=== PATIENT | male | born 1945 | race Caucasian/White ===

== ENCOUNTER 2017-11-24 14:00 | Emergency (ER) | payer MEDICARE, BC ==
[2017-11-24 14:23] VITALS: BP 147/77
[2017-11-24] MEDS ORDERED: Sodium Chloride 0.9% 10 ML Syringe FLUSH PRN (14:39)
--- NOTE | 2017-11-24 15:39 | EDM.PDOC ---
ED HPI GENERAL MEDICAL PROBLEM - General Chief Complaint: Cardiovascular Problem Stated Complaint: HEART FLUTTERING Time Seen by Provider: 11/24/17 14:22 Source of Information: Reports: Patient History Limitations: Reports: No Limitations - History of Present Illness INITIAL COMMENTS - FREE TEXT/NARRATIVE: The patient presents with fluttering in his chest. This has been going on for about a year and a half but over the past few days it has gotten worse. He had about 30 episodes the other day while he was out scouting for deer. He has no chest pain, shortness of breath, abdominal pain, nausea and vomiting. He has no history of heart problems. He has no history of thyroid problems. The episodes do not last that long. Onset: Gradual Duration: Week(s): Severity: Moderate Improves with: Reports: None Worsens with: Reports: None Associated Symptoms: Reports: No Other Symptoms - Related Data Allergies Allergy/AdvReac Type Severity Reaction Status Date / Time ciclesonide Allergy Other Verified 10/08/17 09:30 cromolyn Allergy Other Verified 10/08/17 09:30 fluticasone Allergy Rash Verified 10/08/17 09:32 triamcinolone Allergy Rash Verified 10/08/17 09:34 levofloxacin AdvReac Other Verified 10/08/17 09:33 Home Meds: Home Meds Budesonide/Formoterol [Symbicort 160-4.5 MCG] 2 puff INH DAILY PRN 03/29/14 [ History] Tamsulosin [Flomax] 1 tab PO DAILY 03/29/14 [History] Finasteride 5 mg PO DAILY 05/08/15 [History] Simvastatin 1 tab PO BEDTIME 05/08/15 [History] Past Medical History HEENT History: Reports: Allergic Rhinitis, Sinusitis Respiratory History: Reports: COPD Gastrointestinal History: Reports: GERD, Helicobacter Pylori Other Gastrointestinal History: epigastric pain, rectal bleeding Genitourinary History: Reports: Prostate Disorder Musculoskeletal History: Reports: Neck Pain, Chronic, Osteoarthritis Other Psychiatric History: ETOH abuse Other Dermatologic History: lipoma - Past Surgical History HEENT Surgical History: Reports: Cataract Surgery, Naso-Sinus Surgery Social & Family History - Tobacco Use Smoking Status *Q: Former Smoker Used Tobacco, but Quit: Yes Month/Year Tobacco Last Used: 25 - Caffeine Use Caffeine Use: Reports: Coffee, Soda - Recreational Drug Use Recreational Drug Use: No ED ROS GENERAL - Review of Systems Review Of Systems: See Below Constitutional: Reports: No Symptoms HEENT: Reports: No Symptoms Respiratory: Reports: No Symptoms Cardiovascular: Reports: Palpitations (Fluttering) Endocrine: Reports: No Symptoms GI/Abdominal: Reports: No Symptoms : Reports: No Symptoms ED EXAM, GENERAL - Physical Exam Exam: See Below Exam Limited By: No Limitations General Appearance: Alert, No Apparent Distress Ears: Normal External Exam Nose: Normal Inspection Head: Atraumatic, Normocephalic Neck: Normal Inspection Respiratory/Chest: No Respiratory Distress, Lungs Clear, Normal Breath Sounds Cardiovascular: Regular Rate, Rhythm, No Edema, No Murmur GI/Abdominal: Soft, Non-Tender, No Organomegaly, No Mass Back Exam: Normal Inspection Extremities: Normal Inspection EKG INTERPRETATION EKG Date: 11/24/17 Time: 15:55 Rhythm: Other (sinus bradycardia) Rate (Beats/Min): 51 [place]: Normal P-Wave: Present QRS: Normal ST-T: Normal QT: Normal Course - Vital Signs Last Recorded V/S: Last Vital Signs Temp 97.7 F 11/24/17 14:21 Pulse 53 L 11/24/17 14:21 Resp 20 11/24/17 14:21 BP 147/77 H 11/24/17 14:21 Pulse Ox 99 11/24/17 14:21 - Orders/Labs/Meds Orders: Active Orders 24 hr Category Date Time Status Cardiac Monitoring [RC] . DIRECTED Care 11/24/17 14:39 Active EKG Documentation Completion [RC] ASDIRECTED Care 11/24/17 15:49 Active Peripheral IV Care [RC] . DIRECTED Care 11/24/17 14:40 Active Sodium Chloride 0.9% [Saline Flush] Med 11/24/17 14:39 Active 10 ml FLUSH ASDIRECTED PRN Peripheral IV Insertion Adult [OM.PC] Stat Oth 11/24/17 14:39 Ordered EKG 12 Lead [EK] Stat Ther 11/24/17 15:49 Ordered Medication Orders Sodium Chloride (Saline Flush) 10 ml FLUSH ASDIRECTED PRN PRN Reason: Keep Vein Open Last Admin: 11/24/17 14:47 Dose: 10 ml Labs: Laboratory Tests 11/24/17 11/24/17 Range/Units 14:30 14:30 WBC 5.28 (4.23-9.07) K/mm3 RBC 4.19 L (4.63-6.08) M/mm3 Hgb 12.7 L (13.7-17.5) gm/L Hct 39.5 L (40.1-51.0) % MCV 94.3 H (79.0-92.2) fl MCH 30.3 (25.7-32.2) pg MCHC 32.2 (32.2-35.5) g/dl RDW Std Deviation 42.6 (35.1-43.9) fL Plt Count 211 (163-337) K/mm3 MPV 10.3 (9.4-12.3) fl Neut % (Auto) 57.9 (34.0-67.9) % Lymph % (Auto) 29.7 (21.8-53.1) % [place]kinson % (Auto) 9.7 (5.3-12.2) % Eos % (Auto) 1.9 (0.8-7.0) Baso % (Auto) 0.8 (0.1-1.2) % Neut # (Auto) 3.06 (1.78-5.38) K/mm3 Lymph # (Auto) 1.57 (1.32-3.57) K/mm3 Wilkinson # (Auto) 0.51 (0.30-0.82) K/mm3 Eos # (Auto) 0.10 (0.04-0.54) K/mm3 Baso # (Auto) 0.04 (0.01-0.08) K/mm3 Sodium 138 (136-145) mEq/L Potassium 4.5 (3.5-5.1) mEq/L Chloride 107 (98-107) mEq/L Carbon Dioxide 29 (21-32) mEq/L Anion Gap 6.5 (5-15) BUN 27 H (7-18) mg/dL Creatinine 1.3 (0.7-1.3) mg/dL Est Cr Clr Drug Dosing 52.25 mL/min Estimated GFR (MDRD) 54 (>60) mL/min BUN/Creatinine Ratio 20.8 H (14-18) Glucose 89 (83-115) mg/dL Calcium 9.6 (8.5-10.1) mg/dL Total Bilirubin 0.8 (0.2-1.0) mg/dL AST 19 (15-37) U/L ALT 19 (16-63) U/L Alkaline Phosphatase 71 (46-116) U/L Troponin I < 0.017 (0.00-0.056) ng/mL Total Protein 7.2 (6.4-8.2) g/dl Albumin 3.8 (3.4-5.0) g/dl Globulin 3.4 gm/dL Albumin/Globulin Ratio 1.1 (1-2) TSH 3rd Generation 1.509 (0.358-3.74) uIU/mL Meds: Medications Generic Name Dose Route Start Last Admin Trade Name Freq PRN Reason Stop Dose Admin Sodium Chloride 10 ml 11/24/17 14:39 11/24/17 14:47 Saline Flush FLUSH 10 ml ASDIRECTED PRN Administration Keep Vein Open - Re-Assessments/Exams Free Text/Narrative Re-Assessment/Exam: 11/24/17 15:50 I ordered an IV saline lock, EKG, and labs. His EKG shows a sinus bradycardia with no acute changes. His CBC and CMP look good. His troponin is negative. His TSH is normal. 11/24/17 16:02 He had no episodes since he has been here. I will put him on a 48 hour holter monitor. Departure - Departure Time of Disposition: 16:05 Disposition: Home, Self-Care 01 Condition: Good Clinical Impression: Palpitations Referrals: Lizz Lamar, FINANCIAL WRITER [Primary Care Provider] - 1 Week Forms: ED Department Discharge Additional Instructions: Drink plenty of water about 64 ounces per day. Try to avoid stimulants like caffeine and nicotine. Wear the holter monitor for 48 hours. Follow up with Lizz Lamar in 1 week. - My Orders Last 24 Hours: My Active Orders 11/24/17 14:39 Cardiac Monitoring [RC] . DIRECTED Sodium Chloride 0.9% [Saline Flush] 10 ml FLUSH ASDIRECTED PRN Peripheral IV Insertion Adult [OM.PC] Stat 11/24/17 14:40 Peripheral IV Care [RC] . DIRECTED 11/24/17 15:49 EKG Documentation Completion [RC] ASDIRECTED EKG 12 Lead [EK] Stat - Assessment/Plan Last 24 Hours: My Active Orders 11/24/17 14:39 Cardiac Monitoring [RC] . DIRECTED Sodium Chloride 0.9% [Saline Flush] 10 ml FLUSH ASDIRECTED PRN Peripheral IV Insertion Adult [OM.PC] Stat 11/24/17 14:40 Peripheral IV Care [RC] . DIRECTED 11/24/17 15:49 EKG Documentation Completion [RC] ASDIRECTED EKG 12 Lead [EK] Stat
== END 2017-11-24 16:46 | disposition home or self-care (01) ==
LOC: JD.ED 14:00
DX: R00.2 Palpitations (principal); Z87.891 Personal history of nicotine dependence; Z88.1 Allergy status to other antibiotic agents; Z88.8 Allergy status to other drugs, medicaments and biological substances
CPT/HCPCS: 36415; 80053; 84443; 84484; 85025; 93005; 93225; 93226; 99285; J7050; 93010; 99284-25

== ENCOUNTER 2020-11-09 18:49 | Emergency (ER) | payer MEDICARE, BC ==
--- NOTE | 2020-11-09 19:15 | EDM.PDOC ---
ED HPI GENERAL MEDICAL PROBLEM - General Chief Complaint: Neuro Symptoms/Deficits Stated Complaint: LT SIDE NUMBNESS/BLURRED VISION Time Seen by Provider: 11/09/20 19:08 Source of Information: Reports: Patient History Limitations: Reports: No Limitations - History of Present Illness INITIAL COMMENTS - FREE TEXT/NARRATIVE: A stroke alert was called for this patient. Mr. Marion is a very pleasant 75-year-old gentleman who now presents to the ED stating that he developed sudden-onset tingling/numbness to the left side of his face, neck, left upper extremity (a little), and left lower extremity (a lot) around 18:00 this evening, while riding his truck. The tingling/numbness sensation does not involve his trunk. No associated headache, chest pain or discomfort, palpitations, dyspnea, or nausea. No prior similar symptoms. The patient did not take any medications after the onset of his symptoms. Here in the ED, the patient's initial BP is found to be elevated at 161/67, otherwise, he is hemodynamically stable, afebrile, saturating 99% on room air. He appears to be comfortable, in no acute distress. Prior to this evening, the patient denies having a recent fever, chills, sore throat, ear pain, nasal or sinus congestion, cough, dyspnea, chest pain, palpitations, nausea, vomiting, constipation, diarrhea, abdominal pain, urinary symptoms, recent weight gain or weight loss, recent bloody bowel movements or black bowel movements, recent joint aches, headaches, or rashes. The patient's PCP is WILY Cordero. He has received 2 COVID vaccinations. - Related Data Allergies Allergy/AdvReac Type Severity Reaction Status Date / Time ciclesonide Allergy Severe Other Verified 11/09/20 19:06 cromolyn Allergy Severe Other Verified 11/09/20 19:06 fluticasone Allergy Severe Rash Verified 11/09/20 19:06 triamcinolone Allergy Severe Rash Verified 11/09/20 19:06 levofloxacin AdvReac Severe Other Verified 11/09/20 19:06 Home Meds: Home Meds Tamsulosin [Flomax] 1 tab PO DAILY 03/29/14 [History] Finasteride 5 mg PO DAILY 05/08/15 [History] lisinopriL [Lisinopril] 5 mg PO DAILY 11/09/20 [History] Past Medical History HEENT History: Reports: Allergic Rhinitis Cardiovascular History: Reports: Hypertension Gastrointestinal History: Reports: GERD (untreated) Genitourinary History: Reports: BPH Musculoskeletal History: Reports: Osteoarthritis - Past Surgical History HEENT Surgical History: Reports: Cataract Surgery (bilateral), Naso-Sinus Surgery Musculoskeletal Surgical History: Reports: Carpal Tunnel (left only), Other (See Below) (Left elbow tendon surgery. Right knee, open.) Social & Family History - Tobacco Use Tobacco Use Status *Q: Former Tobacco User Years of Tobacco use: 24 Packs/Tins Daily: 2 Month/Year Tobacco Last Used: Quit 1989 Tobacco Use Comment: Started smoking 1965 - Caffeine Use Caffeine Use: Reports: Coffee - Alcohol Use Alcohol Use History: No - Recreational Drug Use Recreational Drug Use: No - Living Situation & Occupation Living situation: Reports: , with Spouse, with Family ((blind) son, daughter, grandson) Occupation: Employed ([employer]) ED ROS GENERAL - Review of Systems Review Of Systems: Comprehensive ROS is negative, except as noted in HPI. ED EXAM, NEURO - Physical Exam Exam: See Below Exam Limited By: No Limitations General Appearance: Alert, WD/WN, No Apparent Distress Eye Exam: Bilateral Eye: EOMI, Normal Inspection (s/p cataract surgery) Ears: Normal External Exam, Hearing Grossly Normal Nose: Normal Inspection Throat/Mouth: Normal Inspection, Normal Lips, Normal Voice, No Airway Compromise Head Exam: Atraumatic, Normocephalic Neck: Normal Inspection, Full Range of Motion Respiratory/Chest: No Respiratory Distress, Lungs Clear, Normal Breath Sounds, No Accessory Muscle Use Cardiovascular: Normal Peripheral Pulses, Regular Rate, Rhythm, No Edema, No Gallop, No JVD, No Murmur, No Rub GI/Abdominal: Normal Bowel Sounds, Soft, Non-Tender, No Organomegaly, No Distention, No Abnormal Bruit, No Mass Neurological: Alert, Normal Dorsiflexion (bilateral), CN II-XII Intact, Normal Plantar Flexion (bilateral), Oriented x 3, Abnormal Sensation (Decreased sensation to the left corner of the mouth, otherwise, no decreased sensation to the face. Decreased sensation to the entirety of the left upper extremity and the entirety of the left lower extremity. No decreased sensation to the patient's trunk.) Back Exam: Normal Inspection, Full Range of Motion, NT Extremities: Normal Inspection, Normal Range of Motion, No Pedal Edema, Normal Capillary Refill Psychiatric: Normal Affect Skin Exam: Warm, Dry, Intact, Normal Color, No Rash #1 Interpretation EKG Date: 11/09/20 Time: 19:16 Rhythm: Other (Sinus bradycardia) Rate (Beats/Min): 55 [place]: Normal P-Wave: Present QRS: Normal ST-T: Normal QT: Normal Comparison: No Change (11/24/2017) Course - Vital Signs Last Recorded V/S: Last Vital Signs Temp 36.6 C 11/09/20 19:02 Pulse 55 L 11/09/20 22:02 Resp 16 11/09/20 22:02 BP 172/61 H 11/09/20 22:02 Pulse Ox 96 11/09/20 22:02 - Orders/Labs/Meds Orders: Active Orders 24 hr Category Date Time Status Ang Chest [CT] Stat Exams 11/09/20 21:26 Taken Labs: Laboratory Tests 11/09/20 11/09/20 11/09/20 Range/Units 19:05 19:09 19:09 WBC 4.57 (4.23-9.07) K/mm3 RBC 3.88 L (4.63-6.08) M/mm3 Hgb 12.1 L (13.7-17.5) gm/dl Hct 38.2 L (40.1-51.0) % MCV 98.5 H (79.0-92.2) fl MCH 31.2 (25.7-32.2) pg MCHC 31.7 L (32.2-35.5) g/dl RDW Std Deviation 46.6 H (35.1-43.9) fL Plt Count 205 (163-337) K/mm3 MPV 9.5 (9.4-12.3) fl Neutrophils % (Manual) 54 (40-60) % Band Neutrophils % 0 (0-10) % Lymphocytes % (Manual) 34 (20-40) % Atypical Lymphs % 0 % Monocytes % (Manual) 10 (2-10) % Eosinophils % (Manual) 2 (0.8-7.0) % Basophils % (Manual) 0 L (0.2-1.2) Platelet Estimate Adequate RBC Morph Comment Normal PT (9.7-12.0) SECONDS INR APTT (21.7-31.4) SECONDS D-Dimer, Quantitative (0.19-0.50) mg/L Sodium 141 (136-145) mEq/L Potassium 4.0 (3.5-5.1) mEq/L Chloride 108 H (98-107) mEq/L Carbon Dioxide 27 (21-32) mEq/L Anion Gap 10.0 (5-15) BUN 23 H (7-18) mg/dL Creatinine 1.1 (0.7-1.3) mg/dL Est Cr Clr Drug Dosing 58.99 mL/min Estimated GFR (MDRD) > 60 (>60) mL/min BUN/Creatinine Ratio 20.9 H (14-18) Glucose 125 H (70-99) mg/dL POC Glucose 117 H (70-99) mg/dL Calcium 9.1 (8.5-10.1) mg/dL Magnesium 1.9 (1.8-2.4) mg/dL Total Bilirubin 0.4 (0.2-1.0) mg/dL AST 18 (15-37) U/L ALT 25 (16-63) U/L Alkaline Phosphatase 48 (46-116) U/L Troponin I < 0.017 (0.00-0.056) ng/mL C-Reactive Protein <0.2 (<1.0) mg/dL Total Protein 6.8 (6.4-8.2) g/dl Albumin 3.7 (3.4-5.0) g/dl Globulin 3.1 gm/dL Albumin/Globulin Ratio 1.2 (1-2) SARS-CoV-2 RNA (JAZMYNE) (NEGATIVE) 11/09/20 11/09/20 Range/Units 19:09 19:15 WBC (4.23-9.07) K/mm3 RBC (4.63-6.08) M/mm3 Hgb (13.7-17.5) gm/dl Hct (40.1-51.0) % MCV (79.0-92.2) fl MCH (25.7-32.2) pg MCHC (32.2-35.5) g/dl RDW Std Deviation (35.1-43.9) fL Plt Count (163-337) K/mm3 MPV (9.4-12.3) fl Neutrophils % (Manual) (40-60) % Band Neutrophils % (0-10) % Lymphocytes % (Manual) (20-40) % Atypical Lymphs % % Monocytes % (Manual) (2-10) % Eosinophils % (Manual) (0.8-7.0) % Basophils % (Manual) (0.2-1.2) Platelet Estimate RBC Morph Comment PT 10.1 (9.7-12.0) SECONDS INR 0.94 APTT 21.7 (21.7-31.4) SECONDS D-Dimer, Quantitative 1.17 H (0.19-0.50) mg/L Sodium (136-145) mEq/L Potassium (3.5-5.1) mEq/L Chloride (98-107) mEq/L Carbon Dioxide (21-32) mEq/L Anion Gap (5-15) BUN (7-18) mg/dL Creatinine (0.7-1.3) mg/dL Est Cr Clr Drug Dosing mL/min Estimated GFR (MDRD) (>60) mL/min BUN/Creatinine Ratio (14-18) Glucose (70-99) mg/dL POC Glucose (70-99) mg/dL Calcium (8.5-10.1) mg/dL Magnesium (1.8-2.4) mg/dL Total Bilirubin (0.2-1.0) mg/dL AST (15-37) U/L ALT (16-63) U/L Alkaline Phosphatase (46-116) U/L Troponin I (0.00-0.056) ng/mL C-Reactive Protein (<1.0) mg/dL Total Protein (6.4-8.2) g/dl Albumin (3.4-5.0) g/dl Globulin gm/dL Albumin/Globulin Ratio (1-2) SARS-CoV-2 RNA (JAZMYNE) Negative (NEGATIVE) Meds: Medications Discontinued Medications Generic Name Dose Route Start Last Admin Trade Name Freq PRN Reason Stop Dose Admin Aspirin 324 mg 11/09/20 20:13 11/09/20 20:27 Aspirin 81 Mg Tab.Chew PO 11/09/20 20:14 Not Given ONETIME STA Sodium Chloride 1,000 mls @ 150 mls/hr 11/09/20 21:30 Normal Saline IV ASDIRECTED HUBERT Sodium Chloride 100 mls @ 60 mls/min 11/09/20 21:45 11/09/20 22:58 Normal Saline IV 60 mls/min ASDIRECTED HUBERT Administration Iopamidol 100 ml 11/09/20 21:31 11/09/20 22:58 Iopamidol 755 Mg/Ml 100 Ml Bottle IVPUSH 11/09/20 21:32 100 ml ONETIME ONE Administration Sodium Chloride 10 ml 11/09/20 21:31 11/09/20 22:58 Sodium Chloride 0.9% 10 Ml Sdv FLUSH 11/09/20 21:32 10 ml ONETIME ONE Administration - Re-Assessments/Exams Free Text/Narrative Re-Assessment/Exam: 11/09/20 19:12 On neurologic examination, the patient reports only a slight decreased sensation to the left corner of his mouth, otherwise, sensation to his face is equal bilaterally. He reports some decreased sensation to his entire upper extremity, and, especially, to his entire left lower extremity. I see no facial droop or facial weakness, and the patient's upper and lower extremity strength appears to be equal bilaterally, both proximally and distally. On visual field challenge, there are no visual field deficits. He is status-post cataract surgery in both eyes, therefore there was no pupillary response to light on either side. I have ordered a stat Accu-Chek and CT of the head without contrast. In addition, I have ordered several blood tests, a swab for the SARS-CoV-2 virus (in the event that the patient needs to be admitted or transferred), a portable chest x- ray, and an ECG. 11/09/20 19:54 Portable chest radiograph appears to be grossly normal. The cardiac silhouette is within normal limits. Aortosclerosis incidentally noted. No pulmonary vascular congestion. No pleural effusions seen on this AP view. No focal infiltrate. No pneumothorax. Formal read per the Radiologist pending. The patient's CBC is remarkable for an H/H slightly depressed at 12.1/38.2, with remainder of his CBC being unremarkable. His CMP is remarkable for a BUN slightly elevated at 23 with a Cr normal at 1.1, and mild hyperglycemia of 125, with remainder of his CMP being unremarkable. His magnesium level is within normal limits at 1.9. His CRP is undetectably low. His troponin is undetectably low. His D-dimer is elevated at 1.17. His coags are within normal limits. 11/09/20 19:59 CT of the head without contrast is read by Dr. Mcclain as: 1. Mild senescent changes as noted above. 2. No acute intracranial abnormality is seen. 3. If patient's symptoms warrant further evaluation, consider brain MRI. 11/09/20 20:11 I explained to the patient that I would like to discuss the case with a Neurologist. He prefers [facility]. CT and portable chest x-ray images pushed to [facility] at 19:56 (prior to receipt of CT report). Case discussed with Carloz at [facility] at 20:01. Case then discussed with Dr. Karoline Cates, Neurologist at [facility], at 20:06. He feels that the patient likely suffered a small vessel stroke. He recommended that we start the patient on a daily aspirin, either 81 mg or a full aspirin, and then have the patient follow-up in their Neurology clinic this coming Thursday. He does not feel the patient needs to be admitted. I have ordered 324 mg of aspirin. 11/09/20 20:49 Notified that the patient took 324 mg of aspirin prior to coming to the ED (he had told me that he did not take any medications). The patient's swab for the SARS-CoV-2 virus is negative. 11/09/20 21:25 Test results discussed with the patient. I explained that his elevated D-dimer means that it is possible that he has a pulmonary embolus, although it is an incidental finding, likely unrelated to his current symptoms. I offered to perform a CT angiogram to rule out a PE, and the patient would like to proceed with that. I have therefore ordered a CT angiogram of the chest to evaluate for PE, along with some IV fluid. 11/10/20 00:12 CT angiogram of the chest is read by vRleonard as: 1. No evidence of pulmonary embolism or aortic dissection. 2. 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 3. Moderate coronary artery calcification. 4. Bilateral bronchial wall thickening suggests bronchitis or bronchial edema. 5. Patchy mild bilateral perihilar and basilar alveolar densities probably related to hypoventilatory changes or bronchitis/bronchiolitis. No yumi consolidations. 6. Punctate bilateral renal stones, no gross hydronephrosis although the kidneys are incompletely visualized. Bilateral renal cysts. 11/10/20 00:29 Test results discussed with the patient. I will discharge him home with the recommendation that he take a baby aspirin once a day. He is to call Dr. Roslyn [facility] first thing Thursday morning to make an appointment to be seen the same day. He should return to the ED if any worsening symptoms. Departure - Departure Time of Disposition: 00:30 Disposition: Home, Self-Care 01 Condition: Good Clinical Impression: Stroke, Hemianesthesia - Discharge Information *PRESCRIPTION DRUG MONITORING PROGRAM REVIEWED*: Not Applicable *COPY OF PRESCRIPTION DRUG MONITORING REPORT IN PATIENT SIMON: Not Applicable Instructions: Rehabilitation After a Stroke, Adult Referrals: Marlene Stewart PA-C [Primary Care Provider] - Karoline Cates MD [Ordering Only Provider] - Forms: ED Department Discharge Additional Instructions: You were seen in the emergency room after developing sudden-onset tingling/numbness to the left side of your face, left side of your neck, your left upper extremity, and your left lower extremity. Work-up in the ER included numerous blood tests, a swab for the SARS-CoV-2 virus, a portable chest x-ray, a CT of your head, a CT angiogram of your chest, and an ECG. Your case was discussed with the Neurologist Dr. Karoline Cates. He believes that you suffered a small stroke. He recommended that you be started on aspirin and take a baby aspirin once a day, starting today, 11/10/2020. The CT angiogram of your chest found that you have an aneurysm (dilation) of your ascending aorta, at 4.1 cm. Please follow-up with your PCP, WILY Cordero, to make arrangements for this to be followed. Dr. Cates would like you to follow-up in his Neurology Clinic in [place] this coming 11/12/2020. Please call his office first thing in the morning to make an appointment to be seen that same day. Make sure that the operator receptionist understands that you are following up from the ER, and that Dr. Cates stated that he wanted to see you that day. Don't forget that [place] is one hour ahead of us. If any other problems, including any worsening of your symptoms, please do not hesitate to return to the ER. Sepsis Event Note (ED) - Evaluation Sepsis Screening Result: No Definite Risk - Focused Exam Vital Signs: Vital Signs Temp Pulse Resp BP Pulse Ox 11/09/20 22:02 55 L 16 172/61 H 96 11/09/20 20:47 96 16 168/92 H 96 11/09/20 19:02 36.6 C 70 18 161/67 H 99 - My Orders Last 24 Hours: My Active Orders 11/09/20 21:26 Ang Chest [CT] Stat - Assessment/Plan Last 24 Hours: My Active Orders 11/09/20 21:26 Ang Chest [CT] Stat
--- NOTE | 2020-11-09 19:30 | CT ---
Head CT Comparison: Prior MRI brain of 10/12/[address] study of 03/10/14. Findings: Ventricles along with basal cisterns and sulci over the convexities are moderately prominent. 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 No other abnormal parenchymal densities are seen. No evidence of intracranial hemorrhage is seen. No midline shift or mass-effect is seen. Bone window settings were reviewed. Visualized paranasal sinuses and mastoid sinuses show nothing acute. No acute calvarial abnormality is appreciated. Impression: 1. Mild senescent change as noted above. 2. No acute intracranial abnormality is seen. 3. If patient's symptoms warrant further evaluation, consider brain MRI. Diagnostic code #2
--- NOTE | 2020-11-09 20:07 | CR ---
Chest: Portable view of the chest was obtained. Comparison: No prior chest imaging is available. Heart size and mediastinum are within normal limits for portable technique. Very slight atelectasis is seen within the left lung base. Lungs otherwise are clear. Mild deformity of the distal right clavicle is seen compatible with old trauma. Mild degenerative change is partially seen within the spine. Impression: 1. Incidental findings as noted above. 2. Nothing acute is appreciated on portable chest x-ray. Diagnostic code #2
[2020-11-09] MEDS ORDERED: Aspirin 81 MG Tab.Chew PO STA (20:13)
[2020-11-09] MEDS ORDERED: Sodium Chloride 0.9% 1,000 ML IV SCH (21:30)
[2020-11-09] MEDS ORDERED: Sodium Chloride 0.9% 10 ML SDV FLUSH ONE (21:31)
[2020-11-09] MEDS ORDERED: Iopamidol 755 Mg/ML 100 ML Bottle IVPUSH ONE (21:31)
[2020-11-09] MEDS ORDERED: Sodium Chloride 0.9% 100 ML IV SCH (21:45)
[2020-11-09 22:09] VITALS: BP 172/61; PULSE 55
--- NOTE | 2020-11-10 10:36 | CT ---
CT chest Technique: Multiple axial sections through the chest were obtained. Intravenous contrast was utilized. Study has been performed as a pulmonary angiogram protocol. Comparison: No prior chest CT is available, prior chest x-ray performed earlier on the same date (7:33 PM). Findings: Pulmonary arteries are well opacified. No filling defects are seen to indicate pulmonary embolism. 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 Atherosclerotic change is noted within the thoracic aorta. No mediastinal adenopathy or axillary adenopathy is seen. No pericardial thickening is seen. There is coronary artery calcification being seen. Cystic areas are seen within both kidneys. Largest cyst is located within the right kidney measuring 6.0 cm. Several minimal calcifications are seen within both kidneys most likely due to very small nonobstructing calculi. Lungs shows slight interstitial change which is most likely chronic. Mild emphysematous change is felt to be present. Bone window settings were reviewed which show scattered degenerative change within the spine. No acute osseous abnormality is appreciated. Slight calcification is seen in the pleura within the left chest. Impression: 1. No findings of pulmonary embolism. 2. Interstitial change within both lungs which is most likely due to mild fibrosis. Mild emphysematous change is seen. 3. Coronary artery calcification. 4. Other findings believed to be chronic as noted above. Diagnostic code #2 I agree with preliminary report from [facility], finalized on 11/10/20, 12:48 AM CDT, code 1
== END 2020-11-10 00:54 | disposition home or self-care (01) ==
LOC: JD.ED 18:49
DX: I63.9 Cerebral infarction, unspecified (principal); N40.0 Benign prostatic hyperplasia without lower urinary tract symptoms; I10 Essential (primary) hypertension; Z87.891 Personal history of nicotine dependence; Z20.822 Contact with and (suspected) exposure to COVID-19; Z88.1 Allergy status to other antibiotic agents; Z88.8 Allergy status to other drugs, medicaments and biological substances; Z79.899 Other long term (current) drug therapy
CPT/HCPCS: 36415; 70450; 71045; 71275; 80053; 82947; 83735; 84484; 85007; 85027; 85379; 85610; 85730; 86140; 93005; 99284; Q9967; U0002; 93010; 99285

== ENCOUNTER 2022-04-16 09:18 | Day surgery (SDC) | payer MEDICARE, BC ==
[~2022-04-16 09:18] MED LIST: Bupivacaine 0.25% 10 ML SDV ONE; Lactated Ringers 1,000 ML IV SCH; Lidocaine 1%/Sod Bicarbonate in NS 8.4% 1 ML Syringe IDERM PRN; Sodium Chloride 0.9% 10 ML Syringe FLUSH PRN
[2022-04-16] MEDS ORDERED: Lidocaine 1% 2 ML ONE (09:40)
[2022-04-16] MEDS ORDERED: fentaNYL 100 MCG/2 ML SDV ONE (09:40)
[2022-04-16] MEDS ORDERED: Propofol 200 MG/20 ML SDV ONE (09:40)
[2022-04-16] MEDS ORDERED: HYDROmorphone 0.5 MG/0.5 ML Syringe IVPUSH PRN (09:54)
[2022-04-16] MEDS ORDERED: fentaNYL 100 MCG/2 ML SDV IVPUSH PRN (09:54)
[2022-04-16] MEDS ORDERED: Ondansetron 4 MG/2 ML SDV IVPUSH PRN (09:54)
[2022-04-16] MEDS ORDERED: ceFAZolin 2 GM Vial ONE (10:30)
[2022-04-16] MEDS ORDERED: Ketorolac 30 MG/ML SDV ONE (11:04)
[2022-04-16] MEDS ORDERED: Ondansetron 4 MG/2 ML SDV ONE (11:04)
[2022-04-16] MEDS ORDERED: traMADol 50 MG Tab PO PRN (11:07)
[2022-04-16 13:22] VITALS: BP 133/75
[2022-04-16 13:23] VITALS: PULSE 57
[2022-04-16] MEDS ORDERED: Sodium Chloride 0.9% 10 ML Syringe FLUSH SCH (21:00)
== END 2022-04-16 12:29 | disposition home or self-care (01) ==
LOC: JD.SDS 09:18
PROVIDERS: ATTEND Orthopaedic Surgery
DX: M70.22 Olecranon bursitis, left elbow (principal); D64.9 Anemia, unspecified; E78.5 Hyperlipidemia, unspecified; I10 Essential (primary) hypertension; K21.9 Gastro-esophageal reflux disease without esophagitis; N40.0 Benign prostatic hyperplasia without lower urinary tract symptoms; Z88.1 Allergy status to other antibiotic agents; Z88.8 Allergy status to other drugs, medicaments and biological substances; Z87.891 Personal history of nicotine dependence
CPT/HCPCS: 24105; A9270; J0690; J1885; J2405; J2704; J3010; J3490; J7120; 01710; 99100

== ENCOUNTER 2024-09-06 09:54 | Emergency (ER) | payer MEDICARE, BC ==
[2024-09-06 12:19] VITALS: BP 154/64; PULSE 60
== END 2024-09-06 12:10 | disposition home or self-care (01) ==
LOC: JD.ED 09:54
DX: S52.572A Other intraarticular fracture of lower end of left radius, initial encounter for closed fracture (principal); I10 Essential (primary) hypertension; J44.9 Chronic obstructive pulmonary disease, unspecified; K21.9 Gastro-esophageal reflux disease without esophagitis; Z86.73 Personal history of transient ischemic attack (TIA), and cerebral infarction without residual deficits; Z79.82 Long term (current) use of aspirin; Z79.899 Other long term (current) drug therapy; Z88.8 Allergy status to other drugs, medicaments and biological substances; Z88.1 Allergy status to other antibiotic agents; Z91.048 Other nonmedicinal substance allergy status; W01.198A Fall on same level from slipping, tripping and stumbling with subsequent striking against other object, initial encounter
CPT/HCPCS: 29125; 73110-26-LT; 73110-LT; 99283; 99283-25

== ENCOUNTER 2024-11-28 07:37 | Day surgery (SDC) | payer MEDICARE, BC ==
[~2024-11-28 07:37] MED LIST changes: -Bupivacaine 0.25% 10 ML SDV ONE; -Lactated Ringers 1,000 ML IV SCH; +Lidocaine 1% 4 ML ONE; -Lidocaine 1%/Sod Bicarbonate in NS 8.4% 1 ML Syringe IDERM PRN; +Midazolam 1 MG/ML 2 ML SDV ONE; +Ondansetron 4 MG/2 ML SDV ONE; +Propofol 200 MG/20 ML SDV ONE; +Sodium Bicarbonate 8.4% 50 MEQ/50 ML SDV ONE; +Sodium Chloride 0.9% 10 ML Syringe FLUSH SCH; +fentaNYL 100 MCG/2 ML SDV ONE
[2024-11-28] MEDS ORDERED: Ropivacaine 0.5% 5 MG/ML 30 ML SDV ONE (07:49)
[2024-11-28] MEDS: Lactated Ringers 1,000 ML IV SCH (08:15)
[2024-11-28] MEDS ORDERED: fentaNYL 100 MCG/2 ML SDV IVPUSH PRN (08:27)
[2024-11-28] MEDS ORDERED: Ondansetron 4 MG/2 ML SDV IVPUSH PRN (08:27)
[2024-11-28] MEDS ORDERED: Dexamethasone 4 MG/ML 5 ML MDV ONE (09:56)
[2024-11-28] MEDS ORDERED: ePHEDrine 50 MG/ML SDV ONE (10:01)
[2024-11-28] MEDS ORDERED: Lactated Ringers 1,000 ML ONE (10:20)
[2024-11-28 15:25] VITALS: BP 115/68; PULSE 84
== END 2024-11-28 15:00 | disposition home or self-care (01) ==
LOC: JD.SDS 07:37
PROVIDERS: ATTEND Orthopaedic Surgery
DX: M19.012 Primary osteoarthritis, left shoulder (principal); M81.0 Age-related osteoporosis without current pathological fracture; I10 Essential (primary) hypertension; E78.5 Hyperlipidemia, unspecified; Z88.8 Allergy status to other drugs, medicaments and biological substances; Z91.09 Other allergy status, other than to drugs and biological substances; Z79.82 Long term (current) use of aspirin; Z87.891 Personal history of nicotine dependence; Z79.899 Other long term (current) drug therapy
CPT/HCPCS: 23472; 64415; 76000; 97165; 97535; A9270; C1713; C1769; C1776; J0690; J1100; J2003; J2250; J2405; J2704; J2795; J3010; J3373; J7120; 01638; 99100; J3490